=== PATIENT | female | born 1985 | race Two or more races ===

== ENCOUNTER 2016-08-26 12:28 | Emergency (ER) | payer OTHER | END 2016-08-26 12:50 | disposition home or self-care (01) | LOC: CFTX 12:28 | DX: O21.9 Vomiting of pregnancy, unspecified (principal); R19.7 Diarrhea, unspecified; R11.0 Nausea | CPT/HCPCS: 84703; 99284 ==

== ENCOUNTER 2016-10-27 14:02 | Emergency (ER) | payer OTHER ==
[2016-10-27 14:28] LABS: URINE SOURCE CLEAN CATCH
[2016-10-27 14:51] LABS: URINE APPEARANCE CLEAR; URINE BILIRUBIN NEG (NEG); URINE BLOOD NEG (NEG); URINE COLOR YELLOW; URINE GLUCOSE NEG (NEG); URINE KETONE NEG (NEG); URINE LEUKOCYTE ESTERASE NEG (NEG); URINE NITRATE NEG (NEG); URINE PH 6.5 (5-8); URINE PROTEIN NEG (NEG); URINE SPECIFIC GRAVITY 1.015 (1.003-1.035); URINE UROBILINOGEN 0.2 MG/DL (NEG)
[2016-10-27 14:57] LABS: CULTURE INDICATED? NO
== END 2016-10-27 15:57 | disposition home or self-care (01) ==
LOC: CED 14:02
PROVIDERS: Emergency Medicine
DX: O21.9 Vomiting of pregnancy, unspecified (principal); O26.812 Pregnancy related exhaustion and fatigue, second trimester; Z3A.16 16 weeks gestation of pregnancy
CPT/HCPCS: 81003; 84703; 99284